=== PATIENT | female | born 1990 | race Two or more races ===

== ENCOUNTER 2019-06-11 22:17 | Emergency (ER) | payer OTHER ==
[~2019-06-11] VITALS: Ht 154.9 cm; Wt 97.5 kg
[2019-06-11] MEDS ORDERED: SINGULAIR10 MG ORAL (22:25)
[2019-06-11] MEDS ORDERED: PROAIR HFA8.5 GM INH (22:25)
--- NOTE | 2019-06-11 22:30 | NUR ---
ED Nurse Note: Candida walked into ED c/o abdominal pain that started at 1800. patient states her pain as a cramping constricting pain located medial left adn right abdomen. patient is 16 weeks , denies any bleeding or spotting. patient is alert and oriented x4, ambulatory with a steady gait, VSS
[2019-06-11] MEDS ORDERED: Morphine Sulfate 2mg/ml Inj(IV/IM USE ONLY) IVP ONE (22:45)
[2019-06-11 22:52] LABS: APPEARANCE,URINE CLEAR; BILIRUBIN, URINE NEGATIVE (NEGATIVE); COLOR,URINE PALE YELLOW; GLUCOSE, URINE (UA) NEGATIVE (NEGATIVE); HEMATOCRIT 38.3 % (37.0-47.0); KETONES,URINE 3+ (NEGATIVE); LEUKOCYTE ESTERASE ,URINE NEGATIVE (NEGATIVE); MEAN CORPUSCULAR VOLUME 84 FL (80-99); NITRITE,URINE NEGATIVE (NEGATIVE); PH,URINE 7 (4.5-8.0); PLATELET COUNT 306 K/UL (150-450); PROTEIN,URINE NEGATIVE (NEGATIVE); RED BLOOD COUNT 4.54 M/UL (4.20-5.40); RED CELL DISTRIBUTION WIDTH 11.2 % (11.6-14.8); UROBILINOGEN,URINE NORMAL MG/DL (0.0-1.0); WHITE BLOOD COUNT 17.8 K/UL (4.8-10.8)
[2019-06-11 23:04] LABS: ANION GAP 11 mmol/L (5-15); BLOOD UREA NITROGEN 6 mg/dL (7-18); CALCIUM 8.7 MG/DL (8.5-10.1); CARBON DIOXIDE 23 MMOL/L (21-32); CHLORIDE 102 MMOL/L (98-107); CREATININE 0.6 MG/DL (0.55-1.30); POTASSIUM 3.4 MMOL/L (3.5-5.1); SODIUM 135 MMOL/L (136-145)
[2019-06-11 23:10] LABS: ALANINE AMINOTRANSFERASE 31 U/L (12-78); ALBUMIN/GLOBULIN RATIO 0.8 (1.0-2.7); ALKALINE PHOSPHATASE 80 U/L (46-116); ASPARTATE AMINO TRANSFERASE 18 U/L (15-37); BILIRUBIN,TOTAL 0.2 MG/DL (0.2-1.0)
[2019-06-12] MEDS ORDERED: TYLENOL EXTRA500 MG ORAL (00:14)
[2019-06-12] MEDS ORDERED: ONDANSETRON ODT4 MG BC (00:14)
[2019-06-12 00:25] VITALS: BP 122/76
--- NOTE | 2019-06-12 00:25 | NUR ---
ER DISCHARGE NOTE: Patient is cleared to be discharged per ERMD, pt is aox4, on room air, with stable vital signs. pt was given dc and prescription instructions, pt was able to verbalize understanding, pt id band and iv site removed without complications. pt is able to ambulate with steady gait. pt took all belongings.
--- NOTE | 2019-06-12 01:28 | Emergency Room Report ---
History of Present Illness General Chief Complaint: Complications Source: Patient Present Illness HPI 28 yo F presents to ED for evaluation. Complaining of abdominal pain which started tonight. Cramping, 7 out of 10, nonradiating. Denies fevers or chills. Denies nausea or vomiting. Denies diarrhea. States she is about 14 weeks . Currently being evaluated by IT SECURITY ANALYST. Denies spotting or discharge. No other aggravating relieving factors. Denies any other associated symptoms Allergies: Coded Allergies: No Known Allergies (Unverified , 06/11/19) Patient History Past Medical History: asthma Past Surgical History: none Pertinent Family History: none Social History: Denies: smoking, alcohol use, drug use Now: Yes Immunizations: UTD Reviewed Nursing Documentation: PMH: Agreed; PSxH: Agreed Nursing Documentation-PMH Past Medical History: No History, Except For Hx Asthma: Yes Review of Systems All Other Systems: negative except mentioned in HPI Physical Exam Vital Signs Date Time Temp Pulse Resp B/P (MAP) Pulse Ox O2 Delivery O2 Flow Rate FiO2 06/11/19 22:21 98.4 100 22 122/76 (91) 97 Room Air Sp02 EP Interpretation: reviewed, normal General Appearance: no apparent distress, alert, GCS 15, non-toxic, obese Head: normocephalic, atraumatic Eyes: bilateral eye normal inspection, bilateral eye PERRL ENT: hearing grossly normal, normal pharynx, no angioedema, normal voice Neck: full range of motion, supple/symm/no masses Respiratory: chest non-tender, lungs clear, normal breath sounds, speaking full sentences Cardiovascular #1: regular rate, rhythm, no edema Cardiovascular #2: 2+ carotid (R), 2+ carotid (L), 2+ radial (R), 2+ radial (L) , 2+ dorsalis pedis (R), 2+ dorsalis pedis (L) Gastrointestinal: normal bowel sounds, soft, non-distended, no guarding, no rebound, tenderness Rectal: deferred Genitourinary: normal inspection, no CVA tenderness Musculoskeletal: back normal, gait/station normal, normal range of motion, non- tender Neurologic: alert, oriented x3, responsive, motor strength/tone normal, sensory intact, speech normal Psychiatric: judgement/insight normal, memory normal, mood/affect normal, no suicidal/homicidal ideation Reflexes: 3+ bicep (R), 3+ bicep (L), 3+ tricep (R), 3+ tricep (L), 3+ knee (R) , 3+ knee (L) Lymphatic: no adenopathy Medical Decision Making Diagnostic Impression: Primary Impression: Threatened ER Course Hospital Course 28-year-old female presents to ED complaining of abdominal pain. + Differential diagnoses include: gastrits, gastroenterits, ectopic , ovarian torsion/cyst, UTI Clinical course Patient placed on stretcher in ED. After initial history and physical I ordered labs, IV fluids pain meds, OB US Labs-no leukocytosis, electrolytes okay, UA unremarkable OB US - 14 weeks IUP + FHR discussed findings with patient. Will discharge to home. Recommend follow-up with IT SECURITY ANALYST for serial ultrasound and beta-hCG. States she has appointment tomorrow Diagnosis -threatened Stable and discharged to home with Rx zofran, tylenol. Followup with PMD/OB/ PER DIEM PHYSICAL THERAPIST. Return to ED if symptoms recur or worsen Labs Test 06/11/19 22:35 White Blood Count 17.8 K/UL (4.8-10.8) Red Blood Count 4.54 M/UL (4.20-5.40) Hemoglobin 13.0 G/DL (12.0-16.0) Hematocrit 38.3 % (37.0-47.0) Mean Corpuscular Volume 84 FL (80-99) Mean Corpuscular Hemoglobin 28.6 PG (27.0-31.0) Mean Corpuscular Hemoglobin Concent 33.9 G/DL (32.0-36.0) Red Cell Distribution Width 11.2 % (11.6-14.8) Platelet Count 306 K/UL (150-450) Mean Platelet Volume 7.1 FL (6.5-10.1) Neutrophils (%) (Auto) % (45.0-75.0) Lymphocytes (%) (Auto) % (20.0-45.0) Monocytes (%) (Auto) % (1.0-10.0) Eosinophils (%) (Auto) % (0.0-3.0) Basophils (%) (Auto) % (0.0-2.0) Differential Total Cells Counted 100 Neutrophils % (Manual) 79 % (45-75) Lymphocytes % (Manual) 15 % (20-45) Monocytes % (Manual) 6 % (1-10) Eosinophils % (Manual) 0 % (0-3) Basophils % (Manual) 0 % (0-2) Band Neutrophils 0 % (0-8) Platelet Estimate Adequate Platelet Morphology Normal Red Blood Cell Morphology Normal Urine Color Pale yellow Urine Appearance Clear Urine pH 7 (4.5-8.0) Urine Specific [place] 1.010 (1.005-1.035) Urine Protein Negative (NEGATIVE) Urine Glucose (UA) Negative (NEGATIVE) Urine Ketones 3+ (NEGATIVE) Urine Blood Negative (NEGATIVE) Urine Nitrite Negative (NEGATIVE) Urine Bilirubin Negative (NEGATIVE) Urine Urobilinogen Normal MG/DL (0.0-1.0) Urine Leukocyte Esterase Negative (NEGATIVE) Urine HCG, Qualitative Positive (NEGATIVE) Sodium Level 135 MMOL/L (136-145) Potassium Level 3.4 MMOL/L (3.5-5.1) Chloride Level 102 MMOL/L (98-107) Carbon Dioxide Level 23 MMOL/L (21-32) Anion Gap 11 mmol/L (5-15) Blood Urea Nitrogen 6 mg/dL (7-18) Creatinine 0.6 MG/DL (0.55-1.30) Estimat Glomerular Filtration Rate > 60 mL/min (>60) Glucose Level 99 MG/DL (74-106) Calcium Level 8.7 MG/DL (8.5-10.1) Total Bilirubin 0.2 MG/DL (0.2-1.0) Aspartate Amino Transf (AST/SGOT) 18 U/L (15-37) Alanine Aminotransferase (ALT/SGPT) 31 U/L (12-78) Alkaline Phosphatase 80 U/L (46-116) Total Protein 6.8 G/DL (6.4-8.2) Albumin 3.0 G/DL (3.4-5.0) Globulin 3.8 g/dL Albumin/Globulin Ratio 0.8 (1.0-2.7) Lipase 62 U/L (73-393) Human Chorionic Gonadotropin, Quant 05132 mIU/mL (1-6) CT/MRI/US Diagnostic Results CT/MRI/US Diagnostic Results : Imaging Test Ordered: OB US Impression US OB 2nd TRIMESTER: Single live intrauterine . Gestational age by ultrasound is 14 weeks 6 days heart rate 188. Last Vital Signs Date Time Temp Pulse Resp B/P (MAP) Pulse Ox O2 Delivery O2 Flow Rate FiO2 06/12/19 00:25 98.2 62 22 122/76 97 Room Air Status: improved Disposition: HOME, SELF-CARE Condition: Stable Scripts Ondansetron Odt* (ZOFRAN ODT*) 4 Mg Tab.rapdis 4 MG BC EVERY 6 HOURS PRN for Nausea & Vomiting, #20 TAB 0 Refills Prov: Shantanu Lr MD 06/12/19 Acetaminophen* (TYLENOL EXTRA STRENGTH*) 500 Mg Tablet 500 MG ORAL Q8H PRN for Prn Headache/Temp > 101, #30 TAB 0 Refills Prov: Shantanu Lr MD 06/12/19 Patient Instructions: Threatened Miscarriage, [id number] Shantanu Lr MD Jun 12, 2019 01:28
--- NOTE | 2019-06-12 13:04 | Diagnostic Imaging Report ---
Indication: Pelvic pain, patient Technique: Transabdominal and transvaginal images of the pelvis Comparison: none Findings: Exam somewhat limited, due to motion and suboptimal ability the patient to tolerate the exam There is a single live intrauterine . This demonstrates positive heart activity, heart rate 188 bpm. Grossly normal amniotic fluid volume. There is an anterior fundal placenta with clears internal cervical os. Cervix is closed, not measured but grossly normal in length. measurements as follows: Biparietal diameter 2.9 cm, 15 weeks 2 days; head circumference 10.3 cm, 14 weeks 6 days; abdominal circumference 8.4 cm, 14 weeks 5 days; femur length 1.6 cm, 14 weeks 6 days. Estimated gestational age by average ultrasound measurements is 14 weeks 5 days, with estimated date of delivery 12/04/2019. Estimated gestational age by dates is 16 weeks zero days. Detailed assessment of the anatomy not performed, due to early stage of , emergent nature of the exam, and above-described limitations. A three-vessel cord and urinary bladder are demonstrated. Impression: 14 week 5 day, by average ultrasound measurements, single live intrauterine . No unusual features This agrees with the preliminary [facility].
== END 2019-06-12 00:25 | disposition home or self-care (01) ==
LOC: EMR 23:00
DX: O20.0 Threatened abortion (principal); Z3A.14 14 weeks gestation of pregnancy; O99.211 Obesity complicating pregnancy, first trimester
CPT/HCPCS: 36415; 76805; 80053; 81003; 81025; 83690; 84702; 85007; 85025; 96361; 96374; 96375; 99284; J2270; J2405; S0028